=== PATIENT | male | born 1960 | race Caucasian/White ===

== ENCOUNTER 2018-08-18 17:36 | Emergency (ER) | payer OTHER, MEDICAID, MEDICARE | END 2018-08-18 21:07 | disposition home or self-care (01) | LOC: E/R 17:36 | DX: N48.1 Balanitis (principal); I10 Essential (primary) hypertension; E11.9 Type 2 diabetes mellitus without complications; F17.210 Nicotine dependence, cigarettes, uncomplicated; Z79.4 Long term (current) use of insulin | CPT/HCPCS: 82962; 99283 ==